=== PATIENT | male | born 1965 | race African-American/Black ===

== ENCOUNTER 2018-06-07 00:25 | Emergency (ER) | payer SELFPAY ==
--- NOTE | 2018-06-07 00:45 | EDM.PDOC ---
ED HPI GENERAL MEDICAL PROBLEM - General Stated Complaint: OUT OF MEDICATION Time Seen by Provider: 06/07/18 00:35 - History of Present Illness INITIAL COMMENTS - FREE TEXT/NARRATIVE: HISTORY AND PHYSICAL: History of present illness: Patient 52-year-old male history of bipolar disorder schizophrenia and hypertension who's been medically noncompliant due to inability to pay first prescriptions he presents today with significant other who states that he's had more psychiatric symptoms in the form of hearing voices. There's been no reported suicidal homicidal ideation patient is polite cooperative without complaints here. I did discuss with patient and family inpatient psychiatric services and if they would consider this at this time they are discussing it. Review of systems: As per history of present illness and below otherwise all systems reviewed and negative. Past medical history: As per history of present illness and as reviewed below otherwise noncontributory. Surgical history: As per history of present illness and as reviewed below otherwise noncontributory. Social history: No reported history of drug or alcohol abuse. Family history: As per history of present illness and as reviewed below otherwise noncontributory. Physical exam: HEENT: Atraumatic, normocephalic, pupils reactive, negative for conjunctival pallor or scleral icterus, mucous membranes moist, throat clear, neck supple, nontender, trachea midline. Lungs: Clear to auscultation, breath sounds equal bilaterally, chest nontender. Heart: S1S2, regular, negative for clicks, rubs, or JVD. Abdomen: Soft, nondistended, nontender. Negative for masses or hepatosplenomegaly. Negative for costovertebral tenderness. Pelvis: Stable nontender. Genitourinary: Deferred. Rectal: Deferred. Extremities: Atraumatic, negative for cords or calf pain. Neurovascular unremarkable. Neuro: Awake, alert, oriented. Cranial nerves II through XII unremarkable. Cerebellum unremarkable. Motor and sensory unremarkable throughout. Exam nonfocal. Diagnostics: To be determined Therapeutics: To be determined Impression: #1 medical noncompliance #2 history of bipolar disorder #3 history of schizophrenia #4 history of hypertension Definitive disposition and diagnosis as appropriate pending reevaluation and review of above. ED ROS GENERAL - Review of Systems Review Of Systems: ROS reveals no pertinent complaints other than HPI. ED EXAM, GENERAL - Physical Exam Exam: See Below (see dictation) Departure - Departure Time of Disposition: 00:43 Disposition: Against Medical Advice 07 Condition: Good Clinical Impression: History of schizophrenia, Medical non-compliance, History of bipolar disorder, History of hypertension - Discharge Information *PRESCRIPTION DRUG MONITORING PROGRAM REVIEWED*: Not Applicable *COPY OF PRESCRIPTION DRUG MONITORING REPORT IN PATIENT JB: Not Applicable Referrals: PCP,None [Primary Care Provider] - Additional Instructions: The following information is given to patients seen in the emergency department who are being discharged to home. This information is to outline your options for follow-up care. We provide all patients seen in our emergency department with a follow-up referral. The need for follow-up, as well as the timing and circumstances, are variable depending upon the specifics of your emergency department visit. If you don't have a primary care physician on staff, we will provide you with a referral. We always advise you to contact your personal physician following an emergency department visit to inform them of the circumstance of the visit and for follow-up with them and/or the need for any referrals to a consulting specialist. The emergency department will also refer you to a specialist when appropriate. This referral assures that you have the opportunity for followup care with a specialist. All of these measure are taken in an effort to provide you with optimal care, which includes your followup. Under all circumstances we always encourage you to contact your private physician who remains a resource for coordinating your care. When calling for followup care, please make the office aware that this follow-up is from your recent emergency room visit. If for any reason you are refused follow-up, please contact the [facility] emergency department at and asked to speak to the emergency department charge nurse. Follow-up primary medical doctor as discussed return as needed as discussed
== END 2018-06-07 00:50 | disposition left against medical advice (07) ==
LOC: MW.ED 00:25
DX: Z91.19 Patient's noncompliance with other medical treatment and regimen (principal); F31.9 Bipolar disorder, unspecified; F20.9 Schizophrenia, unspecified; I10 Essential (primary) hypertension
CPT/HCPCS: 99284

== ENCOUNTER 2019-08-25 05:06 | Observation (INO) | payer OTHER ==
[2019-08-25] MEDS ORDERED: Sodium Chloride 0.9% 1,000 ML IV ONE (05:30)
[2019-08-25 05:47] LABS: BLOOD UREA NITROGEN,BUN 15 mg/dL (7.0-18.0); CHLORIDE,CL 107 mmol/L (98-107); GLUCOSE RANDOM 141 mg/dL (74-106); POTASSIUM,K 3.4 mmol/L (3.5-5.1); SODIUM,NA 140 mmol/L (136-148)
--- NOTE | 2019-08-25 05:55 | EDM.PDOC ---
ED HPI GENERAL MEDICAL PROBLEM - General Chief Complaint: Neurological Problem Stated Complaint: DIZZY, HISTORY OF HEART PROBLEMS Time Seen by Provider: 08/25/19 06:32 - History of Present Illness INITIAL COMMENTS - FREE TEXT/NARRATIVE: HISTORY AND PHYSICAL: History of present illness: Patient 54-year-old male history of schizophrenia and bipolar disorder diabetes who presents with a concern of syncopal episode states she found him on the floor this morning when she awoke somewhat disoriented on arrival here patient is afebrile stable vital signs he is oriented to person he does recognize his he thinks is in the clinic in denies any headache chest pain shortness of breath other concern he has no known seizure disorder and there was no witnessed seizure he was incontinent of bowel and bladder but states that this has been going on for months since he is return from a recent travel to [place] in [facility] several months months prior Review of systems: As per history of present illness and below otherwise all systems reviewed and negative. Past medical history: As per history of present illness and as reviewed below otherwise noncontributory. Surgical history: As per history of present illness and as reviewed below otherwise noncontributory. Social history: No reported history of drug or alcohol abuse. Family history: As per history of present illness and as reviewed below otherwise noncontributory. Physical exam: HEENT: Atraumatic, normocephalic, pupils reactive, negative for conjunctival pallor or scleral icterus, mucous membranes moist, throat clear, neck supple, nontender, trachea midline. Lungs: Clear to auscultation, breath sounds equal bilaterally, chest nontender. Heart: S1S2, regular, negative for clicks, rubs, or JVD. Abdomen: Soft, nondistended, nontender. Negative for masses or hepatosplenomegaly. Negative for costovertebral tenderness. Pelvis: Stable nontender. Genitourinary: Deferred. Rectal: Deferred. Extremities: Atraumatic, negative for cords or calf pain. Neurovascular unremarkable. Neuro: Awake, alert, oriented to person follows commands moves all extremities limited grossly nonfocal exam. Diagnostics: CBC CMP troponin PT/INR chest x-ray EKG CT brain stool for C&S O&P C. difficile ammonia level urine drug screen [employer]: IV O2 monitor Impression: #1 syncope #2 altered mental status #3 history of schizophrenia #4 history of bipolar disorder #5 history of diabetes Definitive disposition and diagnosis as appropriate pending reevaluation and review of above. Posterior Head Pain Score (Numeric/FACES): 8 - Related Data Allergies Allergy/AdvReac Type Severity Reaction Status Date / Time No Known Allergies Allergy Verified 08/25/19 05:23 Home Meds: Home Meds Gabapentin [Neurontin] 300 mg PO BEDTIME 08/25/19 [History] Lisinopril 30 mg PO DAILY 08/25/19 [History] Metoprolol Succinate [Toprol XL] 200 mg PO DAILY 08/25/19 [History] OLANZapine [Olanzapine] 10 mg PO BEDTIME 08/25/19 [History] Sertraline [Zoloft] 100 mg PO BEDTIME 08/25/19 [History] amLODIPine [Norvasc] 5 mg PO DAILY 08/25/19 [History] atorvaSTATin Calcium [Atorvastatin Calcium] 80 mg PO DAILY 08/25/19 [History] metFORMIN [Glucophage XR] 500 mg PO BIDMEALS 08/25/19 [History] traZODone HCl [Trazodone HCl] 150 mg PO BEDTIME 08/25/19 [History] Past Medical History HEENT History: Reports: None Cardiovascular History: Reports: High Cholesterol, Hypertension Respiratory History: Reports: None Gastrointestinal History: Reports: None Genitourinary History: Reports: None Musculoskeletal History: Reports: None Neurological History: Reports: None Psychiatric History: Reports: Bipolar, Hallucinations, Schizophrenia, Other ( See Below) Other Psychiatric History: Off meds for 5 weeks Endocrine/Metabolic History: Reports: Diabetes, Type II Hematologic History: Reports: None Immunologic History: Reports: None Oncologic (Cancer) History: Reports: None Dermatologic History: Reports: None - Infectious Disease History Infectious Disease History: Reports: None - Past Surgical History Head Surgeries/Procedures: Reports: None HEENT Surgical History: Reports: Tonsillectomy Social & Family History - Tobacco Use Smoking Status *Q: Never Smoker - Recreational Drug Use Recreational Drug Use: No ED ROS GENERAL - Review of Systems Review Of Systems: Comprehensive ROS is negative, except as noted in HPI. ED EXAM, GENERAL - Physical Exam Exam: See Below (Dictation) Course - Vital Signs Last Recorded V/S: Last Vital Signs Temp 36.3 C 08/25/19 05:21 Pulse 72 08/25/19 05:21 Resp 16 08/25/19 05:21 BP 163/92 H 08/25/19 05:21 Pulse Ox 95 08/25/19 05:21 - Orders/Labs/Meds Orders: Active Orders 24 hr Category Date Time Status Cardiac Monitoring [RC] . DIRECTED Care 08/25/19 05:28 Active EKG Documentation Completion [RC] STAT Care 08/25/19 05:28 Active Pulse Oximetry [RC] ASDIRECTED Care 08/25/19 05:30 Active C DIFFICILE AG/TOXIN W/REFLEX [RM] Stat Lab 08/25/19 05:33 Ordered CULTURE STOOL + CAMPY+SHIGATOX [RM] Stat Lab 08/25/19 05:33 Ordered DRUG SCREEN, URINE [URCHEM] Stat Lab 08/25/19 05:30 Ordered UA W/RENATO RFLX IF INDICATED [URIN] Stat Lab 08/25/19 05:30 Ordered Saline Lock Insert [OM.PC] Stat Oth 08/25/19 05:30 Ordered Labs: Laboratory Tests 08/25/19 08/25/19 08/25/19 Range/Units 05:10 05:10 05:10 WBC 4.30 (4.0-11.0) K/uL RBC 4.81 (4.50-5.90) M/uL Hgb 14.2 (13.0-17.0) g/dL Hct 40.8 (38.0-50.0) % MCV 84.8 (80.0-98.0) fL MCH 29.5 (27.0-32.0) pg MCHC 34.8 (31.0-37.0) g/dL RDW Std Deviation 43.9 (28.0-62.0) fl RDW Coeff of Joy 14 (11.0-15.0) % Plt Count 189 (150-400) K/uL MPV 10.20 (7.40-12.00) fL Neut % (Auto) 38.2 L (48.0-80.0) % Lymph % (Auto) 46.0 H (16.0-40.0) % Bremer % (Auto) 8.4 (0.0-15.0) % Eos % (Auto) 6.5 (0.0-7.0) % Baso % (Auto) 0.9 (0.0-1.5) % Neut # (Auto) 1.6 (1.4-5.7) K/uL Lymph # (Auto) 2.0 (0.6-2.4) K/uL Bremer # (Auto) 0.4 (0.0-0.8) K/uL Eos # (Auto) 0.3 (0.0-0.7) K/uL Baso # (Auto) 0.0 (0.0-0.1) K/uL Nucleated RBC % 0.0 /100WBC Nucleated RBCs # 0 K/uL INR 1.03 Sodium 140 (136-148) mmol/L Potassium 3.4 L (3.5-5.1) mmol/L Chloride 107 (98-107) mmol/L Carbon Dioxide 23.0 (21.0-32.0) mmol/L BUN 15 (7.0-18.0) mg/dL Creatinine 1.1 (0.8-1.3) mg/dL Est Cr Clr Drug Dosing 77.42 mL/min Estimated GFR (MDRD) > 60.0 ml/min Glucose 141 H (74-106) mg/dL Calcium 8.9 (8.5-10.1) mg/dL Total Bilirubin 1.0 (0.2-1.0) mg/dL AST 21 (15-37) IU/L ALT 23 (14-63) IU/L Alkaline Phosphatase 70 (46-116) U/L Ammonia (19-54) ug/dL Troponin I < 0.050 (0.000-0.056) ng/mL Total Protein 7.7 (6.4-8.2) g/dL Albumin 3.8 (3.4-5.0) g/dL Globulin 3.9 (2.6-4.0) g/dL Albumin/Globulin Ratio 1.0 (0.9-1.6) Prolactin ng/mL 08/25/19 08/25/19 Range/Units 05:10 05:39 WBC (4.0-11.0) K/uL RBC (4.50-5.90) M/uL Hgb (13.0-17.0) g/dL Hct (38.0-50.0) % MCV (80.0-98.0) fL MCH (27.0-32.0) pg MCHC (31.0-37.0) g/dL RDW Std Deviation (28.0-62.0) fl RDW Coeff of Joy (11.0-15.0) % Plt Count (150-400) K/uL MPV (7.40-12.00) fL Neut % (Auto) (48.0-80.0) % Lymph % (Auto) (16.0-40.0) % Bremer % (Auto) (0.0-15.0) % Eos % (Auto) (0.0-7.0) % Baso % (Auto) (0.0-1.5) % Neut # (Auto) (1.4-5.7) K/uL Lymph # (Auto) (0.6-2.4) K/uL Bremer # (Auto) (0.0-0.8) K/uL Eos # (Auto) (0.0-0.7) K/uL Baso # (Auto) (0.0-0.1) K/uL Nucleated RBC % /100WBC Nucleated RBCs # K/uL INR Sodium (136-148) mmol/L Potassium (3.5-5.1) mmol/L Chloride (98-107) mmol/L Carbon Dioxide (21.0-32.0) mmol/L BUN (7.0-18.0) mg/dL Creatinine (0.8-1.3) mg/dL Est Cr Clr Drug Dosing mL/min Estimated GFR (MDRD) ml/min Glucose (74-106) mg/dL Calcium (8.5-10.1) mg/dL Total Bilirubin (0.2-1.0) mg/dL AST (15-37) IU/L ALT (14-63) IU/L Alkaline Phosphatase (46-116) U/L Ammonia 37 (19-54) ug/dL Troponin I (0.000-0.056) ng/mL Total Protein (6.4-8.2) g/dL Albumin (3.4-5.0) g/dL Globulin (2.6-4.0) g/dL Albumin/Globulin Ratio (0.9-1.6) Prolactin 6.4 ng/mL Meds: Medications Discontinued Medications Generic Name Dose Route Start Last Admin Trade Name Freq PRN Reason Stop Dose Admin Sodium Chloride 1,000 mls @ 999 mls/hr 08/25/19 05:30 Normal Saline IV 08/25/19 06:30 BOLUS ONE Departure - Departure Time of Disposition: 06:32 Disposition: Refer to Observation Condition: Good Clinical Impression: Altered mental status, Syncope, History of schizophrenia, History of bipolar disorder, History of hypertension - Discharge Information Referrals: Dominic Zuniga MD [Primary Care Provider] - Forms: ED Department Discharge - My Orders Last 24 Hours: My Active Orders 08/25/19 05:28 Cardiac Monitoring [RC] . DIRECTED EKG Documentation Completion [RC] STAT 08/25/19 05:30 Pulse Oximetry [RC] ASDIRECTED DRUG SCREEN, URINE [URCHEM] Stat UA W/RENATO RFLX IF INDICATED [URIN] Stat Saline Lock Insert [OM.PC] Stat 08/25/19 05:33 C DIFFICILE AG/TOXIN W/REFLEX [RM] Stat CULTURE STOOL + CAMPY+SHIGATOX [RM] Stat - Assessment/Plan Last 24 Hours: My Active Orders 08/25/19 05:28 Cardiac Monitoring [RC] . DIRECTED EKG Documentation Completion [RC] STAT 08/25/19 05:30 Pulse Oximetry [RC] ASDIRECTED DRUG SCREEN, URINE [URCHEM] Stat UA W/RENATO RFLX IF INDICATED [URIN] Stat Saline Lock Insert [OM.PC] Stat 08/25/19 05:33 C DIFFICILE AG/TOXIN W/REFLEX [RM] Stat CULTURE STOOL + CAMPY+SHIGATOX [RM] Stat
--- NOTE | 2019-08-25 06:15 | CR ---
INDICATION: Dizziness. TECHNIQUE: AP chest. FINDINGS: Clear lungs. Normal heart size and pulmonary vascularity. The included skeletal thorax is unremarkable with exception of mild spurring at the AC joints. IMPRESSION: Negative AP chest. Dictated by Javad Hamilton MD @ Aug 25 2019 6:13AM Signed by Dr. Javad Hamilton @ Aug 25 2019 6:14AM
--- NOTE | 2019-08-25 06:17 | CT ---
INDICATION: Dizziness. TECHNIQUE: Noncontrast head CT. COMPARISON: None. FINDINGS: No acute intracranial hemorrhage, hydrocephalus, mass effect, or shift of midline structures. No evidence for ischemic change or infarction. The calvarium is skullbase are negative for fractures. The included mastoid air cells are clear. Mucosal thickening partial opacification of several ethmoid sinuses. Possible polyp or retention cyst posterior inferior right maxillary sinus. IMPRESSION: No acute intracranial process identified. Please note that all CT scans at this facility use dose modulation, iterative reconstruction, and/or weight-based dosing when appropriate to reduce radiation dose to as low as reasonably achievable. Dictated by Javad Hamilton MD @ Aug 25 2019 6:15AM Signed by Dr. Javad Hamilton @ Aug 25 2019 6:16AM
[2019-08-25] MEDS ORDERED: Acetaminophen 325 MG Tab PO PRN (08:32)
[2019-08-25] MEDS ORDERED: Ondansetron 4 MG Tab.DIS PO PRN (08:32)
[2019-08-25] MEDS ORDERED: Ondansetron 4 MG/2 ML SDV IVPUSH PRN (08:32)
[2019-08-25] MEDS ORDERED: Potassium Chloride 20 MEQ Tab.ER PO ONE (09:18)
[2019-08-25] MEDS: amLODIPine 5 MG Tab PO SCH (09:36)
[2019-08-25] MEDS: atorvaSTATin 40 MG Tab PO SCH ×2 (09:36→09:45)
[2019-08-25] MEDS: Enoxaparin 40 MG/0.4 ML Syringe SUBCUT SCH (09:37)
[2019-08-25] MEDS: Lisinopril 10 MG Tab PO SCH ×2 (09:37→09:45)
[2019-08-25] MEDS: Metoprolol Succinate 100 MG Tab.ER PO SCH ×2 (09:38→09:45)
[2019-08-25] MEDS: Pantoprazole 40 MG Tab.CR PO SCH (09:42)
[2019-08-25] MEDS ORDERED: Gadobenate Dimeglumine 529 MG/ML 20 ML SDV IVPUSH ONE (10:36)
[2019-08-25] MEDS: Sodium Chloride 0.9% 1,000 ML IV SCH ×2 (11:38→20:09)
[2019-08-25] MEDS: Insulin Aspart 100 Units/ML 3 ML Pen SUBCUT SCH ×2 (12:16→18:43)
--- NOTE | 2019-08-25 17:30 | PCM.HP.2 ---
H&P History of Present Illness - General Date of Service: 08/25/19 Admit Problem/Dx: Admission Diagnosis/Problem Admission Diagnosis/Problem Syncope - History of Present Illness Initial Comments - Free Text/Narative: 54-year-old male admitted for suspected syncopal episode and altered mental status. He has a PMH of bipolar disorder, schizophrenia, DM II and HTN. He was found laying on the floor of his house this morning by his . Patient reports that he was not laying on the floor for very long and his came in and found him as soon as she heard him hit the floor. Patient reports that he "passed out" and woke up as soon as his head hit the floor. His reports that he was bowel and bladder incontinent when she found him but further states that he has been bowel incontinent for several weeks now. He reports having severe diarrhea and not being able to make it the bathroom to relieve himself since returning from a trip to [place] and [facility] a few months ago. Patient also reportedly was diagnosed with Zika virus at that time. He also reports traveling to [place] in [place] a few weeks ago. He further complains of abdominal bloating and acid reflux since the onset of his diarrhea. also reports that patient has appeared more confused and slower to answering questions for the past several weeks. There was no witnessed seizure activity. Patient denies any fevers, chills, blurry vision, shortness of breath, chest pain, nausea, vomiting, numbness or tingling, blood in stool or blood in urine. In the ER, CT head and CXR were negative. He was positive for orthostatic hypotension. CMP revealed mild hypokalemia. UA and UDS were negative. Patient admitted for further work-up. Posterior Head Pain Score (Numeric/FACES): 8 - Related Data Allergies/Adverse Reactions: Allergies Allergy/AdvReac Type Severity Reaction Status Date / Time No Known Allergies Allergy Verified 08/25/19 09:53 Home Medications: Home Meds Gabapentin [Neurontin] 300 mg PO BEDTIME 08/25/19 [History] Lisinopril 30 mg PO DAILY 08/25/19 [History] Metoprolol Succinate [Toprol XL] 200 mg PO DAILY 08/25/19 [History] OLANZapine [Olanzapine] 10 mg PO BEDTIME 08/25/19 [History] Sertraline [Zoloft] 100 mg PO BEDTIME 08/25/19 [History] amLODIPine [Norvasc] 5 mg PO DAILY 08/25/19 [History] atorvaSTATin Calcium [Atorvastatin Calcium] 80 mg PO DAILY 08/25/19 [History] metFORMIN [Glucophage] 500 mg PO BIDMEALS 08/25/19 [History] traZODone HCl [Trazodone HCl] 150 mg PO BEDTIME 08/25/19 [History] Past Medical History HEENT History: Reports: None Cardiovascular History: Reports: High Cholesterol, Hypertension Respiratory History: Reports: None Gastrointestinal History: Reports: None Genitourinary History: Reports: None Musculoskeletal History: Reports: None Neurological History: Reports: None Psychiatric History: Reports: Bipolar, Hallucinations, Schizophrenia Other Psychiatric History: Off meds for 5 weeks Endocrine/Metabolic History: Reports: Diabetes, Type II Hematologic History: Reports: None Immunologic History: Reports: None Oncologic (Cancer) History: Reports: None Dermatologic History: Reports: None - Infectious Disease History Infectious Disease History: Reports: None - Past Surgical History Head Surgeries/Procedures: Reports: None HEENT Surgical History: Reports: Tonsillectomy Social & Family History - Tobacco Use Smoking Status *Q: Never Smoker Second Hand Smoke Exposure: No - Caffeine Use Caffeine Use: Reports: Soda Other Caffeine Use: Occ - Recreational Drug Use Recreational Drug Use: No H&P Review of Systems - Review of Systems: Review Of Systems: Comprehensive ROS is negative, except as noted in HPI. Exam - Exam Exam: See Below - Vital Signs Vital Signs: Last Vital Signs Temp 98.0 F 08/25/19 15:44 Pulse 68 08/25/19 15:44 Resp 20 08/25/19 15:44 BP 136/91 H 08/25/19 15:44 Pulse Ox 97 08/25/19 15:44 Orthostatic Blood Pressure [ 136/99 Standing] Orthostatic Blood Pressure [ 148/92 Sitting] Orthostatic Blood Pressure [ 156/101 Supine] Weight: 227 lb 11.8 oz - Exam General: Alert, Oriented, Cooperative HEENT: Conjunctiva Clear, EOMI, Mucosa Moist & [place], Posterior Pharynx Clear, Pupils Equal, Pupils Reactive Neck: Supple, Trachea Midline Lungs: Clear to Auscultation, Normal Respiratory Effort Cardiovascular: Regular Rate, Regular Rhythm GI/Abdominal Exam: Normal Bowel Sounds, Soft, Non-Tender, No Distention Extremities: Normal Inspection, No Pedal Edema Peripheral Pulses: 2+: Posterior Tibial (L), Posterior Tibial (R) Skin: Warm, Dry, Intact Neurological: Cranial Nerves Intact, Strength Equal Bilateral, Normal Tone, Other (AO x 2, slow to answering questions) Psychiatric: Alert, Normal Affect, Normal Mood - Patient Data Lab Results Last 24 hrs: Laboratory Results - last 24 hr 08/25/19 08/25/19 08/25/19 Range/Units 05:10 05:10 05:10 WBC 4.30 (4.0-11.0) K/uL RBC 4.81 (4.50-5.90) M/uL Hgb 14.2 (13.0-17.0) g/dL Hct 40.8 (38.0-50.0) % MCV 84.8 (80.0-98.0) fL MCH 29.5 (27.0-32.0) pg MCHC 34.8 (31.0-37.0) g/dL RDW Std Deviation 43.9 (28.0-62.0) fl RDW Coeff of Joy 14 (11.0-15.0) % Plt Count 189 (150-400) K/uL MPV 10.20 (7.40-12.00) fL Neut % (Auto) 38.2 L (48.0-80.0) % Lymph % (Auto) 46.0 H (16.0-40.0) % [place] % (Auto) 8.4 (0.0-15.0) % Eos % (Auto) 6.5 (0.0-7.0) % Baso % (Auto) 0.9 (0.0-1.5) % Neut # (Auto) 1.6 (1.4-5.7) K/uL Lymph # (Auto) 2.0 (0.6-2.4) K/uL [place] # (Auto) 0.4 (0.0-0.8) K/uL Eos # (Auto) 0.3 (0.0-0.7) K/uL Baso # (Auto) 0.0 (0.0-0.1) K/uL Nucleated RBC % 0.0 /100WBC Nucleated RBCs # 0 K/uL INR 1.03 Sodium 140 (136-148) mmol/L Potassium 3.4 L (3.5-5.1) mmol/L Chloride 107 (98-107) mmol/L Carbon Dioxide 23.0 (21.0-32.0) mmol/L BUN 15 (7.0-18.0) mg/dL Creatinine 1.1 (0.8-1.3) mg/dL Est Cr Clr Drug Dosing 77.42 mL/min Estimated GFR (MDRD) > 60.0 ml/min Glucose 141 H (74-106) mg/dL POC Glucose (60-110) mg/dL Calcium 8.9 (8.5-10.1) mg/dL Phosphorus (2.6-4.7) mg/dL Magnesium (1.8-2.4) mg/dL Total Bilirubin 1.0 (0.2-1.0) mg/dL AST 21 (15-37) IU/L ALT 23 (14-63) IU/L Alkaline Phosphatase 70 (46-116) U/L Ammonia (19-54) ug/dL Creatine Kinase (26-308) U/L Troponin I < 0.050 (0.000-0.056) ng/mL Total Protein 7.7 (6.4-8.2) g/dL Albumin 3.8 (3.4-5.0) g/dL Globulin 3.9 (2.6-4.0) g/dL Albumin/Globulin Ratio 1.0 (0.9-1.6) Prolactin ng/mL Urine Color Urine Appearance Urine pH (5.0-8.0) Ur Specific [place] (1.001-1.035) Urine Protein (NEGATIVE) mg/dL Urine Glucose (UA) (NEGATIVE) mg/dL Urine Ketones (NEGATIVE) mg/dL Urine Occult Blood (NEGATIVE) Urine Nitrite (NEGATIVE) Urine Bilirubin (NEGATIVE) Urine Urobilinogen (<2.0) EU/dL Ur Leukocyte Esterase (NEGATIVE) Urine Opiates Screen (NEGATIVE) Ur Oxycodone Screen (NEGATIVE) Urine Methadone Screen (NEGATIVE) Ur Barbiturates Screen (NEGATIVE) Ur Phencyclidine Scrn (NEGATIVE) Ur Amphetamine Screen (NEGATIVE) U Methamphetamines Scrn (NEGATIVE) U Benzodiazepines Scrn (NEGATIVE) U Cocaine Metab Screen (NEGATIVE) U Marijuana (THC) Screen (NEGATIVE) 08/25/19 08/25/19 08/25/19 Range/Units 05:10 05:10 05:10 WBC (4.0-11.0) K/uL RBC (4.50-5.90) M/uL Hgb (13.0-17.0) g/dL Hct (38.0-50.0) % MCV (80.0-98.0) fL MCH (27.0-32.0) pg MCHC (31.0-37.0) g/dL RDW Std Deviation (28.0-62.0) fl RDW Coeff of Joy (11.0-15.0) % Plt Count (150-400) K/uL MPV (7.40-12.00) fL Neut % (Auto) (48.0-80.0) % Lymph % (Auto) (16.0-40.0) % [place] % (Auto) (0.0-15.0) % Eos % (Auto) (0.0-7.0) % Baso % (Auto) (0.0-1.5) % Neut # (Auto) (1.4-5.7) K/uL Lymph # (Auto) (0.6-2.4) K/uL [place] # (Auto) (0.0-0.8) K/uL Eos # (Auto) (0.0-0.7) K/uL Baso # (Auto) (0.0-0.1) K/uL Nucleated RBC % /100WBC Nucleated RBCs # K/uL INR Sodium (136-148) mmol/L Potassium (3.5-5.1) mmol/L Chloride (98-107) mmol/L Carbon Dioxide (21.0-32.0) mmol/L BUN (7.0-18.0) mg/dL Creatinine (0.8-1.3) mg/dL Est Cr Clr Drug Dosing mL/min Estimated GFR (MDRD) ml/min Glucose (74-106) mg/dL POC Glucose (60-110) mg/dL Calcium (8.5-10.1) mg/dL Phosphorus 3.5 (2.6-4.7) mg/dL Magnesium 2.0 (1.8-2.4) mg/dL Total Bilirubin (0.2-1.0) mg/dL AST (15-37) IU/L ALT (14-63) IU/L Alkaline Phosphatase (46-116) U/L Ammonia (19-54) ug/dL Creatine Kinase 192 (26-308) U/L Troponin I (0.000-0.056) ng/mL Total Protein (6.4-8.2) g/dL Albumin (3.4-5.0) g/dL Globulin (2.6-4.0) g/dL Albumin/Globulin Ratio (0.9-1.6) Prolactin 6.4 ng/mL Urine Color Urine Appearance Urine pH (5.0-8.0) Ur Specific [place] (1.001-1.035) Urine Protein (NEGATIVE) mg/dL Urine Glucose (UA) (NEGATIVE) mg/dL Urine Ketones (NEGATIVE) mg/dL Urine Occult Blood (NEGATIVE) Urine Nitrite (NEGATIVE) Urine Bilirubin (NEGATIVE) Urine Urobilinogen (<2.0) EU/dL Ur Leukocyte Esterase (NEGATIVE) Urine Opiates Screen (NEGATIVE) Ur Oxycodone Screen (NEGATIVE) Urine Methadone Screen (NEGATIVE) Ur Barbiturates Screen (NEGATIVE) Ur Phencyclidine Scrn (NEGATIVE) Ur Amphetamine Screen (NEGATIVE) U Methamphetamines Scrn (NEGATIVE) U Benzodiazepines Scrn (NEGATIVE) U Cocaine Metab Screen (NEGATIVE) U Marijuana (THC) Screen (NEGATIVE) 08/25/19 08/25/19 08/25/19 Range/Units 05:39 07:00 07:00 WBC (4.0-11.0) K/uL RBC (4.50-5.90) M/uL Hgb (13.0-17.0) g/dL Hct (38.0-50.0) % MCV (80.0-98.0) fL MCH (27.0-32.0) pg MCHC (31.0-37.0) g/dL RDW Std Deviation (28.0-62.0) fl RDW Coeff of Joy (11.0-15.0) % Plt Count (150-400) K/uL MPV (7.40-12.00) fL Neut % (Auto) (48.0-80.0) % Lymph % (Auto) (16.0-40.0) % [place] % (Auto) (0.0-15.0) % Eos % (Auto) (0.0-7.0) % Baso % (Auto) (0.0-1.5) % Neut # (Auto) (1.4-5.7) K/uL Lymph # (Auto) (0.6-2.4) K/uL [place] # (Auto) (0.0-0.8) K/uL Eos # (Auto) (0.0-0.7) K/uL Baso # (Auto) (0.0-0.1) K/uL Nucleated RBC % /100WBC Nucleated RBCs # K/uL INR Sodium (136-148) mmol/L Potassium (3.5-5.1) mmol/L Chloride (98-107) mmol/L Carbon Dioxide (21.0-32.0) mmol/L BUN (7.0-18.0) mg/dL Creatinine (0.8-1.3) mg/dL Est Cr Clr Drug Dosing mL/min Estimated GFR (MDRD) ml/min Glucose (74-106) mg/dL POC Glucose (60-110) mg/dL Calcium (8.5-10.1) mg/dL Phosphorus (2.6-4.7) mg/dL Magnesium (1.8-2.4) mg/dL Total Bilirubin (0.2-1.0) mg/dL AST (15-37) IU/L ALT (14-63) IU/L Alkaline Phosphatase (46-116) U/L Ammonia 37 (19-54) ug/dL Creatine Kinase (26-308) U/L Troponin I (0.000-0.056) ng/mL Total Protein (6.4-8.2) g/dL Albumin (3.4-5.0) g/dL Globulin (2.6-4.0) g/dL Albumin/Globulin Ratio (0.9-1.6) Prolactin ng/mL Urine Color YELLOW Urine Appearance CLEAR Urine pH 5.5 (5.0-8.0) Ur Specific [place] 1.020 (1.001-1.035) Urine Protein NEGATIVE (NEGATIVE) mg/dL Urine Glucose (UA) NEGATIVE (NEGATIVE) mg/dL Urine Ketones NEGATIVE (NEGATIVE) mg/dL Urine Occult Blood NEGATIVE (NEGATIVE) Urine Nitrite NEGATIVE (NEGATIVE) Urine Bilirubin NEGATIVE (NEGATIVE) Urine Urobilinogen 0.2 (<2.0) EU/dL Ur Leukocyte Esterase NEGATIVE (NEGATIVE) Urine Opiates Screen NEGATIVE (NEGATIVE) Ur Oxycodone Screen NEGATIVE (NEGATIVE) Urine Methadone Screen NEGATIVE (NEGATIVE) Ur Barbiturates Screen NEGATIVE (NEGATIVE) Ur Phencyclidine Scrn NEGATIVE (NEGATIVE) Ur Amphetamine Screen NEGATIVE (NEGATIVE) U Methamphetamines Scrn NEGATIVE (NEGATIVE) U Benzodiazepines Scrn NEGATIVE (NEGATIVE) U Cocaine Metab Screen NEGATIVE (NEGATIVE) U Marijuana (THC) Screen NEGATIVE (NEGATIVE) 08/25/19 08/25/19 Range/Units 11:43 17:01 WBC (4.0-11.0) K/uL RBC (4.50-5.90) M/uL Hgb (13.0-17.0) g/dL Hct (38.0-50.0) % MCV (80.0-98.0) fL MCH (27.0-32.0) pg MCHC (31.0-37.0) g/dL RDW Std Deviation (28.0-62.0) fl RDW Coeff of Joy (11.0-15.0) % Plt Count (150-400) K/uL MPV (7.40-12.00) fL Neut % (Auto) (48.0-80.0) % Lymph % (Auto) (16.0-40.0) % [place] % (Auto) (0.0-15.0) % Eos % (Auto) (0.0-7.0) % Baso % (Auto) (0.0-1.5) % Neut # (Auto) (1.4-5.7) K/uL Lymph # (Auto) (0.6-2.4) K/uL [place] # (Auto) (0.0-0.8) K/uL Eos # (Auto) (0.0-0.7) K/uL Baso # (Auto) (0.0-0.1) K/uL Nucleated RBC % /100WBC Nucleated RBCs # K/uL INR Sodium (136-148) mmol/L Potassium (3.5-5.1) mmol/L Chloride (98-107) mmol/L Carbon Dioxide (21.0-32.0) mmol/L BUN (7.0-18.0) mg/dL Creatinine (0.8-1.3) mg/dL Est Cr Clr Drug Dosing mL/min Estimated GFR (MDRD) ml/min Glucose (74-106) mg/dL POC Glucose 91 118 H (60-110) mg/dL Calcium (8.5-10.1) mg/dL Phosphorus (2.6-4.7) mg/dL Magnesium (1.8-2.4) mg/dL Total Bilirubin (0.2-1.0) mg/dL AST (15-37) IU/L ALT (14-63) IU/L Alkaline Phosphatase (46-116) U/L Ammonia (19-54) ug/dL Creatine Kinase (26-308) U/L Troponin I (0.000-0.056) ng/mL Total Protein (6.4-8.2) g/dL Albumin (3.4-5.0) g/dL Globulin (2.6-4.0) g/dL Albumin/Globulin Ratio (0.9-1.6) Prolactin ng/mL Urine Color Urine Appearance Urine pH (5.0-8.0) Ur Specific [place] (1.001-1.035) Urine Protein (NEGATIVE) mg/dL Urine Glucose (UA) (NEGATIVE) mg/dL Urine Ketones (NEGATIVE) mg/dL Urine Occult Blood (NEGATIVE) Urine Nitrite (NEGATIVE) Urine Bilirubin (NEGATIVE) Urine Urobilinogen (<2.0) EU/dL Ur Leukocyte Esterase (NEGATIVE) Urine Opiates Screen (NEGATIVE) Ur Oxycodone Screen (NEGATIVE) Urine Methadone Screen (NEGATIVE) Ur Barbiturates Screen (NEGATIVE) Ur Phencyclidine Scrn (NEGATIVE) Ur Amphetamine Screen (NEGATIVE) U Methamphetamines Scrn (NEGATIVE) U Benzodiazepines Scrn (NEGATIVE) U Cocaine Metab Screen (NEGATIVE) U Marijuana (THC) Screen (NEGATIVE) Result Diagrams: 08/25/19 05:10 08/25/19 05:10 Que Results Last 24 hrs: Microbiology 08/25/19 14:53 Campylobacter Antigen Assay - Final Stool / Feces NEGATIVE CAMPYLOBACTER AG REFERENCE RANGE: NEGATIVE C. difficile Antigen & Toxins A,B - Final 08/25/19 05:37 Influenza Type A Antigen Screen - Final Nasopharyngeal Swab NEGATIVE INFLUENZA A VIRUS AG REFERENCE RANGE: NEGATIVE Influenza Type B Antigen Screen - Final NEGATIVE INFLUENZA B VIRUS AG REFERENCE RANGE: NEGATIVE Problem List Initiated/Reviewed/Updated: Yes Orders Last 24hrs: Active Orders 24 hr Category Date Time Status Patient Status [ADT] Stat ADT 08/25/19 06:35 Active Blood Glucose Check, Bedside [RC] TIDAC Care 08/25/19 11:00 Active Cardiac Monitoring [RC] Q8H Care 08/25/19 05:28 Active Oxygen Therapy [RC] PRN Care 08/25/19 08:32 Active Pulse Oximetry [RC] ASDIRECTED Care 08/25/19 05:30 Active Telemetry Monitoring [Cardiac Monitoring] [RC] . Care 08/25/19 08:58 Active DIRECTED Up With Assistance [RC] ASDIRECTED Care 08/25/19 08:32 Active VTE/DVT Education [RC] PER UNIT ROUTINE Care 08/25/19 08:32 Active Vital Signs [RC] Q4H Care 08/25/19 08:32 Active [employer] Diet [DIET] Diet 08/25/19 Breakfast Active Brain w wo Cont [MR] Urgent Exams 08/25/19 10:24 Taken Echo Comp wo Cont [US] Urgent Exams 08/25/19 10:24 Taken C DIFFICILE AG/TOXIN W/REFLEX [RM] Stat Lab 08/25/19 14:53 Results CULTURE STOOL + CAMPY+SHIGATOX [RM] Stat Lab 08/25/19 14:53 Results Acetaminophen [Tylenol] Med 08/25/19 08:32 Active 650 mg PO Q4H PRN Enoxaparin [Lovenox] Med 08/25/19 08:45 Active 40 mg SUBCUT Q24H Gabapentin [Neurontin] Med 08/25/19 21:00 Active 300 mg PO BEDTIME Insulin Aspart [NovoLOG] Med 08/25/19 11:30 Active See Protocol SUBCUT TIDAC Lisinopril [Prinivil] Med 08/25/19 09:00 Active 30 mg PO DAILY Metoprolol Succinate [Toprol XL] Med 08/25/19 09:00 Active 200 mg PO DAILY OLANZapine [ZyPREXA] Med 08/25/19 21:00 Active 10 mg PO BEDTIME Ondansetron [Zofran ODT] Med 08/25/19 08:32 Active 4 mg PO Q4H PRN Ondansetron [Zofran] Med 08/25/19 08:32 Active 4 mg IVPUSH Q4H PRN Pantoprazole [ProTONIX] Med 08/25/19 09:30 Active 40 mg PO DAILY Sertraline [Zoloft] Med 08/25/19 21:00 Active 100 mg PO BEDTIME Sodium Chloride 0.9% [Normal Saline] 1,000 ml Med 08/25/19 10:45 Active IV ASDIRECTED amLODIPine [Norvasc] Med 08/25/19 09:00 Active 5 mg PO DAILY atorvaSTATin [Lipitor] Med 08/25/19 09:00 Active 80 mg PO DAILY traZODone Med 08/25/19 21:00 Active 150 mg PO BEDTIME Saline Lock Insert [OM.PC] Stat Oth 08/25/19 05:30 Ordered Resuscitation Status Routine Resus Stat 08/25/19 08:32 Ordered Medication Orders Acetaminophen (Tylenol) 650 mg PO Q4H PRN PRN Reason: Pain (Mild 1-3)/fever Amlodipine Besylate (Norvasc) 5 mg PO DAILY [facility] Last Admin: 08/25/19 09:36 Dose: 5 mg Atorvastatin Calcium (Lipitor) 80 mg PO DAILY [facility] Last Admin: 08/25/19 09:45 Dose: Enoxaparin Sodium (Lovenox) 40 mg SUBCUT Q24H [facility] Last Admin: 08/25/19 09:37 Dose: 40 mg Gabapentin (Neurontin) 300 mg PO BEDTIME [facility] Sodium Chloride (Normal Saline) 1,000 mls @ 125 mls/hr IV ASDIRECTED [facility] Last Admin: 08/25/19 11:38 Dose: 125 mls/hr Insulin Aspart (Novolog) 0 unit SUBCUT TIDAC [facility]; Protocol Last Admin: 08/25/19 12:16 Dose: Lisinopril (Prinivil) 30 mg PO DAILY [facility] Last Admin: 08/25/19 09:45 Dose: Metoprolol Succinate (Toprol Xl) 200 mg PO DAILY [facility] Last Admin: 08/25/19 09:45 Dose: Olanzapine (Zyprexa) 10 mg PO BEDTIME [facility] Ondansetron HCl (Zofran Odt) 4 mg PO Q4H PRN PRN Reason: nausea, able to take PO Ondansetron HCl (Zofran) 4 mg IVPUSH Q4H PRN PRN Reason: Nausea Pantoprazole Sodium (Protonix) 40 mg PO DAILY [facility] Last Admin: 08/25/19 09:42 Dose: 40 mg Sertraline HCl (Zoloft) 100 mg PO BEDTIME MICHAEL Trazodone HCl (Trazodone) 150 mg PO BEDTIME MICHAEL Assessment/Plan Comment:: Assessment: 1. Altered mental status 2. Suspected syncopal episode. 3. Orthostatic hypotension likely secondary to dehydration. 4. Chronic diarrhea 5. Diabetes Mellitus type II Plan: 1. Will order further imaging with MRI and also order ECHO. Patient will be on telemetry. EKG showed no acute ischemic changes. 2. For orthostatic hypotension, will hydrate patient with IV fluids. 3. For chronic diarrhea, will order stool cultures, ova + parasites and test for C. diff. 4. For diabetes mellitus II, SSI. 5. For past medical history, continue with home medications.
[2019-08-25] MEDS ORDERED: Sertraline 100 MG Tab PO SCH (21:00)
[2019-08-25] MEDS ORDERED: OLANZapine 5 MG Tab PO SCH (21:00)
[2019-08-25] MEDS ORDERED: traZODone 50 MG Tab PO SCH (21:00)
[2019-08-25] MEDS ORDERED: Gabapentin 300 MG Cap PO SCH (21:00)
[2019-08-26] MEDS: Sodium Chloride 0.9% 1,000 ML IV SCH (04:36)
[2019-08-26 06:24] LABS: BLOOD UREA NITROGEN,BUN 10 mg/dL (7.0-18.0); CARBON DIOXIDE,CO2 24.2 mmol/L (21.0-32.0); CHLORIDE,CL 109 mmol/L (98-107); GLUCOSE RANDOM 127 mg/dL (74-106); POTASSIUM,K 3.6 mmol/L (3.5-5.1); SODIUM,NA 141 mmol/L (136-148)
[2019-08-26] MEDS: Insulin Aspart 100 Units/ML 3 ML Pen SUBCUT SCH ×2 (08:40→11:48)
[2019-08-26] MEDS: Lisinopril 10 MG Tab PO SCH (09:08)
[2019-08-26] MEDS: Metoprolol Succinate 100 MG Tab.ER PO SCH (09:09)
[2019-08-26] MEDS: Pantoprazole 40 MG Tab.CR PO SCH (09:10)
[2019-08-26] MEDS: atorvaSTATin 40 MG Tab PO SCH (09:10)
[2019-08-26] MEDS: Enoxaparin 40 MG/0.4 ML Syringe SUBCUT SCH (09:13)
[2019-08-26] MEDS: amLODIPine 5 MG Tab PO SCH (09:42)
--- NOTE | 2019-08-26 12:55 | MR ---
EXAM DATE: 08/25/19 PATIENT'S AGE: 54 Patient: HARRIET WARD Facility: [facility] Site Site : [id number] Study: MRI-Head W/ and W/O Cont [id number] 10:20:11 AM Ordering Physician: LAITH Final Report: INDICATION: 54-year-old male. Syncope. TECHNIQUE: Sagittal T1, axial FLAIR T2 diffusion-weighted, susceptibility weighted and gadolinium-enhanced T1 weighted volumetric sequences. COMPARISON: Brain also dated 08/25/2019. FINDINGS: The lateral 3rd and 4th ventricles are normal in size and configuration. There are no areas of diffusion restriction to suggest acute and park hernández. There is no mass effect or evidence of hemorrhage. There are no periventricular white matter lesions. The brainstem and cerebellum appear normal. No enhancing intra- axial or extra-axial lesion. Small retention cysts in the right maxillary antrum with mucosal thickening in the ethmoid air cells. IMPRESSION: Normal MRI brain with and without contrast. No evidence of acute intracranial abnormality. Dictated by Javad Longo MD @ Aug 26 2019 10:29AM Signed by: Javad Longo MD @08/26/2019 10:36:00 AM (Electronic Signature) Report Signed by Proxy. [facility]
--- NOTE | 2019-08-26 17:33 | PCM.DCSUM1 ---
<Lico Gee - Last Filed: 08/26/19 17:28> Discharge Summary - Hospital Course Free Text/Narrative:: 54-year-old male admitted for suspected syncopal episode and altered mental status. He has a PMH of schizophrenia, bipolar disorder, DM II and HTN. Patient was reportedly found lying on the floor of his house by his and then brought to the ER. Patient also has been suffering from chronic diarrhea for the past several months since returning from a trip to [place]. also reports that patient has been confused more often for the past several weeks and slow to answering questions. Patient did test positive for orthostatic hypotension on admission and was started on IV fluids. CT head was negative and CXR was negative. MRI showed no brain abnormalities. ECHO showed normal EF. Patient remained on telemetry and no events were reported. Patient remained stable throughout his hospitalization and had no recurrence of presyncope or syncope. Stool studies returned negative for c.diff and Campylobacter. Stool ova and parasites testing are still pending and will need to be followed up by PCP. Patient reported feeling well on day of discharge and was AOx4. He was also set up with a referral to neurology. - Discharge Data Discharge Date: 08/26/19 Discharge Disposition: Home, Self-Care 01 Condition: Stable - Referral to Home Health Primary Care Physician: Dominic Zuniga MD - Patient Instructions Diet: Diabetic Diet Activity: As Tolerated Notify Provider of: Fever, Increased Pain, Swelling and Redness, Drainage, Nausea and/or Vomiting - Discharge Plan *PRESCRIPTION DRUG MONITORING PROGRAM REVIEWED*: Not Applicable *COPY OF PRESCRIPTION DRUG MONITORING REPORT IN PATIENT JB: Not Applicable Home Medications: Home Meds Gabapentin [Neurontin] 300 mg PO BEDTIME 08/25/19 [History] Lisinopril 30 mg PO DAILY 08/25/19 [History] Metoprolol Succinate [Toprol XL] 200 mg PO DAILY 08/25/19 [History] OLANZapine [Olanzapine] 10 mg PO BEDTIME 08/25/19 [History] Sertraline [Zoloft] 100 mg PO BEDTIME 08/25/19 [History] amLODIPine [Norvasc] 5 mg PO DAILY 08/25/19 [History] atorvaSTATin Calcium [Atorvastatin Calcium] 80 mg PO DAILY 08/25/19 [History] metFORMIN [Glucophage] 500 mg PO BIDMEALS 08/25/19 [History] traZODone HCl [Trazodone HCl] 150 mg PO BEDTIME 08/25/19 [History] Patient Handouts: Viral Gastroenteritis, Adult, [id number], Confusion, Dehydration, Adult, [id number] Referrals: Jennifer Burgos MD [Physician] - 09/28/19 3:00 pm (Arrive 15 minutes early with a photo ID and insurance card.) Dominic Zuniga MD [Primary Care Provider] - 09/09/19 2:00 pm - Discharge Summary/Plan Comment DC Time >30 min.: No - Patient Data Vitals - Most Recent: Last Vital Signs Temp 97.3 F 08/26/19 12:00 Pulse 61 08/26/19 12:00 Resp 18 08/26/19 12:00 BP 154/94 H 08/26/19 12:00 Pulse Ox 96 08/26/19 12:00 Orthostatic Blood Pressure [ 136/99 Standing] Orthostatic Blood Pressure [ 148/92 Sitting] Orthostatic Blood Pressure [ 156/101 Supine] Weight - Most Recent: 103.3 kg I&O - Last 24 hours: Intake & Output 08/26/19 08/26/19 08/26/19 06:59 14:59 22:59 Intake Total 1500 2380 Output Total 1300 Balance 1500 1080 Lab Results - Last 24 hrs: Laboratory Results - last 24 hr 08/25/19 08/26/19 08/26/19 Range/Units 05:24 05:47 05:47 WBC 4.28 (4.0-11.0) K/uL RBC 4.64 (4.50-5.90) M/uL Hgb 13.3 (13.0-17.0) g/dL Hct 40.0 (38.0-50.0) % MCV 86.2 (80.0-98.0) fL MCH 28.7 (27.0-32.0) pg MCHC 33.3 (31.0-37.0) g/dL RDW Std Deviation 44.4 (28.0-62.0) fl RDW Coeff of Joy 14 (11.0-15.0) % Plt Count 185 (150-400) K/uL MPV 10.40 (7.40-12.00) fL Neut % (Auto) 34.4 L (48.0-80.0) % Lymph % (Auto) 49.5 H (16.0-40.0) % [place] % (Auto) 7.7 (0.0-15.0) % Eos % (Auto) 7.9 H (0.0-7.0) % Baso % (Auto) 0.5 (0.0-1.5) % Neut # (Auto) 1.5 (1.4-5.7) K/uL Lymph # (Auto) 2.1 (0.6-2.4) K/uL [place] # (Auto) 0.3 (0.0-0.8) K/uL Eos # (Auto) 0.3 (0.0-0.7) K/uL Baso # (Auto) 0.0 (0.0-0.1) K/uL Nucleated RBC % 0.0 /100WBC Nucleated RBCs # 0 K/uL Sodium 141 (136-148) mmol/L Potassium 3.6 (3.5-5.1) mmol/L Chloride 109 H (98-107) mmol/L Carbon Dioxide 24.2 (21.0-32.0) mmol/L BUN 10 (7.0-18.0) mg/dL Creatinine 1.1 (0.8-1.3) mg/dL Est Cr Clr Drug Dosing 77.42 mL/min Estimated GFR (MDRD) > 60.0 ml/min Glucose 127 H (74-106) mg/dL POC Glucose 112 H (60-110) mg/dL Calcium 8.3 L (8.5-10.1) mg/dL Total Bilirubin 0.5 (0.2-1.0) mg/dL AST 16 (15-37) IU/L ALT 25 (14-63) IU/L Alkaline Phosphatase 61 (46-116) U/L Total Protein 7.0 (6.4-8.2) g/dL Albumin 3.4 (3.4-5.0) g/dL Globulin 3.6 (2.6-4.0) g/dL Albumin/Globulin Ratio 0.9 (0.9-1.6) 08/26/19 08/26/19 Range/Units 06:07 11:31 WBC (4.0-11.0) K/uL RBC (4.50-5.90) M/uL Hgb (13.0-17.0) g/dL Hct (38.0-50.0) % MCV (80.0-98.0) fL MCH (27.0-32.0) pg MCHC (31.0-37.0) g/dL RDW Std Deviation (28.0-62.0) fl RDW Coeff of Joy (11.0-15.0) % Plt Count (150-400) K/uL MPV (7.40-12.00) fL Neut % (Auto) (48.0-80.0) % Lymph % (Auto) (16.0-40.0) % [place] % (Auto) (0.0-15.0) % Eos % (Auto) (0.0-7.0) % Baso % (Auto) (0.0-1.5) % Neut # (Auto) (1.4-5.7) K/uL Lymph # (Auto) (0.6-2.4) K/uL [place] # (Auto) (0.0-0.8) K/uL Eos # (Auto) (0.0-0.7) K/uL Baso # (Auto) (0.0-0.1) K/uL Nucleated RBC % /100WBC Nucleated RBCs # K/uL Sodium (136-148) mmol/L Potassium (3.5-5.1) mmol/L Chloride (98-107) mmol/L Carbon Dioxide (21.0-32.0) mmol/L BUN (7.0-18.0) mg/dL Creatinine (0.8-1.3) mg/dL Est Cr Clr Drug Dosing mL/min Estimated GFR (MDRD) ml/min Glucose (74-106) mg/dL POC Glucose 127 H 123 H (60-110) mg/dL Calcium (8.5-10.1) mg/dL Total Bilirubin (0.2-1.0) mg/dL AST (15-37) IU/L ALT (14-63) IU/L Alkaline Phosphatase (46-116) U/L Total Protein (6.4-8.2) g/dL Albumin (3.4-5.0) g/dL Globulin (2.6-4.0) g/dL Albumin/Globulin Ratio (0.9-1.6) RENATO Results - Last 24 hrs: Microbiology 08/25/19 14:53 Campylobacter Antigen Assay - Final Stool / Feces NEGATIVE CAMPYLOBACTER AG REFERENCE RANGE: NEGATIVE Shiga Toxin I - Final NEGATIVE FOR SHIGA TOXIN 1 REFERENCE RANGE: NEGATIVE Shiga Toxin II - Final NEGATIVE FOR SHIGA TOXIN 2 REFERENCE RANGE: NEGATIVE C. difficile Antigen & Toxins A,B - Final Med Orders - Current: Current Medications Discontinued Medications Acetaminophen (Tylenol) 650 mg PO Q4H PRN PRN Reason: Pain (Mild 1-3)/fever Amlodipine Besylate (Norvasc) 5 mg PO DAILY [facility] Last Admin: 08/26/19 09:42 Dose: 5 mg Atorvastatin Calcium (Lipitor) 80 mg PO DAILY [facility] Last Admin: 08/26/19 09:10 Dose: 80 mg Enoxaparin Sodium (Lovenox) 40 mg SUBCUT Q24H [facility] Last Admin: 08/26/19 09:13 Dose: 40 mg Gabapentin (Neurontin) 300 mg PO BEDTIME [facility] Last Admin: 08/25/19 20:49 Dose: 300 mg Gadobenate Dimeglumine (Multihance) 20 ml IVPUSH ONETIME ONE Stop: 08/25/19 10:37 Last Admin: 08/25/19 10:37 Dose: 20 ml Sodium Chloride (Normal Saline) 1,000 mls @ 999 mls/hr IV BOLUS ONE Stop: 08/25/19 06:30 Last Admin: 08/25/19 05:10 Dose: 999 mls/hr Sodium Chloride (Normal Saline) 1,000 mls @ 125 mls/hr IV ASDIRECTED [facility] Last Admin: 08/26/19 04:36 Dose: 125 mls/hr Insulin Aspart (Novolog) 0 unit SUBCUT TIDAC [facility]; Protocol Last Admin: 08/26/19 11:48 Dose: Not Given Lisinopril (Prinivil) 30 mg PO DAILY [facility] Last Admin: 08/26/19 09:08 Dose: 30 mg Metoprolol Succinate (Toprol Xl) 200 mg PO DAILY [facility] Last Admin: 08/26/19 09:09 Dose: 200 mg Olanzapine (Zyprexa) 10 mg PO BEDTIME [facility] Last Admin: 08/25/19 20:48 Dose: 10 mg Ondansetron HCl (Zofran Odt) 4 mg PO Q4H PRN PRN Reason: nausea, able to take PO Ondansetron HCl (Zofran) 4 mg IVPUSH Q4H PRN PRN Reason: Nausea Pantoprazole Sodium (Protonix) 40 mg PO DAILY [facility] Last Admin: 08/26/19 09:10 Dose: 40 mg Potassium Chloride (Klor-Con M20) 40 meq PO ONETIME ONE Stop: 08/25/19 09:19 Last Admin: 08/25/19 09:42 Dose: 40 meq Sertraline HCl (Zoloft) 100 mg PO BEDTIME [facility] Last Admin: 08/25/19 20:49 Dose: 100 mg Trazodone HCl (Trazodone) 150 mg PO BEDTIME [facility] Last Admin: 08/25/19 20:48 Dose: 150 mg <Juanjose Goyal - Last Filed: 08/28/19 12:25> Discharge Summary - Referral to Home Health Primary Care Physician: Dominic Zuniga MD - Patient Data Vitals - Most Recent: Last Vital Signs Temp 36.3 C 08/26/19 12:00 Pulse 61 08/26/19 12:00 Resp 18 08/26/19 12:00 BP 154/94 H 08/26/19 12:00 Pulse Ox 96 08/26/19 12:00 Orthostatic Blood Pressure [ 136/99 Standing] Orthostatic Blood Pressure [ 148/92 Sitting] Orthostatic Blood Pressure [ 156/101 Supine] RENATO Results - Last 24 hrs: Microbiology 08/25/19 14:53 Cryptosporidium/Giardia - Final Stool / Feces 08/25/19 14:53 Stool Culture - Final Stool / Feces NO SALMONELLA, SHIGELLA,OR E.COLI O157 ISOLATED Campylobacter Antigen Assay - Final NEGATIVE CAMPYLOBACTER AG REFERENCE RANGE: NEGATIVE Shiga Toxin I - Final NEGATIVE FOR SHIGA TOXIN 1 REFERENCE RANGE: NEGATIVE Shiga Toxin II - Final NEGATIVE FOR SHIGA TOXIN 2 REFERENCE RANGE: NEGATIVE C. difficile Antigen & Toxins A,B - Final Med Orders - Current: Current Medications Discontinued Medications Acetaminophen (Tylenol) 650 mg PO Q4H PRN PRN Reason: Pain (Mild 1-3)/fever Amlodipine Besylate (Norvasc) 5 mg PO DAILY [facility] Last Admin: 08/26/19 09:42 Dose: 5 mg Atorvastatin Calcium (Lipitor) 80 mg PO DAILY [facility] Last Admin: 08/26/19 09:10 Dose: 80 mg Enoxaparin Sodium (Lovenox) 40 mg SUBCUT Q24H [facility] Last Admin: 08/26/19 09:13 Dose: 40 mg Gabapentin (Neurontin) 300 mg PO BEDTIME [facility] Last Admin: 08/25/19 20:49 Dose: 300 mg Gadobenate Dimeglumine (Multihance) 20 ml IVPUSH ONETIME ONE Stop: 08/25/19 10:37 Last Admin: 08/25/19 10:37 Dose: 20 ml Sodium Chloride (Normal Saline) 1,000 mls @ 999 mls/hr IV BOLUS ONE Stop: 08/25/19 06:30 Last Admin: 08/25/19 05:10 Dose: 999 mls/hr Sodium Chloride (Normal Saline) 1,000 mls @ 125 mls/hr IV ASDIRECTED [facility] Last Admin: 08/26/19 04:36 Dose: 125 mls/hr Insulin Aspart (Novolog) 0 unit SUBCUT TIDAC [facility]; Protocol Last Admin: 08/26/19 11:48 Dose: Not Given Lisinopril (Prinivil) 30 mg PO DAILY [facility] Last Admin: 08/26/19 09:08 Dose: 30 mg Metoprolol Succinate (Toprol Xl) 200 mg PO DAILY [facility] Last Admin: 08/26/19 09:09 Dose: 200 mg Olanzapine (Zyprexa) 10 mg PO BEDTIME [facility] Last Admin: 08/25/19 20:48 Dose: 10 mg Ondansetron HCl (Zofran Odt) 4 mg PO Q4H PRN PRN Reason: nausea, able to take PO Ondansetron HCl (Zofran) 4 mg IVPUSH Q4H PRN PRN Reason: Nausea Pantoprazole Sodium (Protonix) 40 mg PO DAILY [facility] Last Admin: 08/26/19 09:10 Dose: 40 mg Potassium Chloride (Klor-Con M20) 40 meq PO ONETIME ONE Stop: 08/25/19 09:19 Last Admin: 08/25/19 09:42 Dose: 40 meq Sertraline HCl (Zoloft) 100 mg PO BEDTIME [facility] Last Admin: 08/25/19 20:49 Dose: 100 mg Trazodone HCl (Trazodone) 150 mg PO BEDTIME [facility] Last Admin: 08/25/19 20:48 Dose: 150 mg - Free Text/Narrative Note: I have examined the patient with the resident. I have discussed findings and treatment plan with the resident. I agree with the assessment and plan as outlined in the following note.
--- NOTE | 2019-08-27 11:48 | ECHO ---
The echocardiogram report can be seen in this patient's EMR (Electronic Medical Record) in the REPORTS section. The echocardiogram report has also been scanned into PACS and can be seen there as well. JANAK
== END 2019-08-26 13:15 | disposition home or self-care (01) ==
LOC: MW.ED 05:06 → MW.MS 06:35
PROVIDERS: ADMIT Internal Medicine; ATTEND Internal Medicine
DX: I95.1 Orthostatic hypotension (principal); R41.82 Altered mental status, unspecified; K52.9 Noninfective gastroenteritis and colitis, unspecified; E87.6 Hypokalemia; E11.9 Type 2 diabetes mellitus without complications; I10 Essential (primary) hypertension; E78.00 Pure hypercholesterolemia, unspecified; F20.9 Schizophrenia, unspecified; F31.9 Bipolar disorder, unspecified; Z79.84 Long term (current) use of oral hypoglycemic drugs; Z79.899 Other long term (current) drug therapy
CPT/HCPCS: 36415; 70450; 70553; 71045; 80053; 80305; 81003; 82140; 82550; 82962; 83735; 84100; 84146; 84484; 85025; 85610; 87046; 87324; 87328; 87329; 87804; 87899; 93005; 93306; 99285; A9270; A9577; J1650; J7040

== ENCOUNTER 2019-12-07 05:53 | Emergency (ER) | payer SELFPAY ==
--- NOTE | 2019-12-07 08:13 | CR ---
Chest: AP view of the chest was obtained. Comparison: No prior chest imaging is available. Heart size and mediastinum are normal. Lungs are clear with no acute parenchymal change. Slight degenerative spurring is partially visualized within the spine. Impression: 1. Findings as noted above. 2. Nothing acute is appreciated on AP chest x-ray. Diagnostic code #2 Study was dictated in [place] [employer]
[2019-12-07 08:35] LABS: BLOOD UREA NITROGEN,BUN 11 mg/dL (7.0-18.0); CARBON DIOXIDE,CO2 27.3 mmol/L (21.0-32.0); CHLORIDE,CL 106 mmol/L (98-107); GLUCOSE RANDOM 134 mg/dL (74-106); POTASSIUM,K 4.3 mmol/L (3.5-5.1); SODIUM,NA 140 mmol/L (136-148)
--- NOTE | 2019-12-07 08:42 | EDM.PDOC ---
[facility] GENERAL MEDICAL PROBLEM - General Chief Complaint: Respiratory Problem Stated Complaint: SICK Time Seen by Provider: 12/07/19 07:31 - History of Present Illness INITIAL COMMENTS - FREE TEXT/NARRATIVE: HPI 54-year-old obese male with history of schizophrenia, medication noncompliance, bipolar disorder, and HTN presents for evaluation of cough, sore throat, and watery eyes with mild discomfort of ~1 week duration. No history of DVT, PE, no chest pain, shortness breath, no recent calf tenderness or swelling. Patient recently returned from visiting [place], no known sick contacts throughout history. Denies rash, neck stiffness, headache, changes in vision or hearing, or ear pain. M/S/F/SocHx notable for: please see HPI; remainder reviewed with patient and in chart. ROS: Negative constitutional, eye, cardiovascular, pulmonary, GI, , MSK, skin , neurologic, psychiatric, endocrine unless noted in the HPI. Exam HR 69, RR 20, BP 162/106, T 36.1C, SaO2 98% on room air. Gen: Pleasant, non-toxic appearing, resting comfortably. HEENT: Normocephalic, atraumatic. * Ears - TMs clear bilaterally, bilateral external auditory canals without erythema, inflammation, or swelling, bilateral mastoids nontender without overlying erythema, swelling, or warmth. * Eyes - Bilateral eyes without injection, swelling, or discharge, no proptosis or periorbital erythema, swelling, warmth, or tenderness. * Mouth - Anterior oropharynx with MMM, no lesions appreciated, floor of the mouth is soft and without swelling. Posterior oropharynx with mild erythema but without swelling, exudate, lesions, uvula midline. * Nose - Nares with scant crusting and discharge. * Neck - Neck supple without posterior or anterior cervical chain lymphadenopathy bilaterally. Resp: Clear to auscultation bilaterally, normal work of breathing without accessory muscle usage.Infrequent mildly productive cough observed. Card: Regular rate and rhythm with no murmurs, rubs or gallops. Extremities warm and well perfused. Vascular: both calves of equal size and nontender to palpation bilaterally. GI: Non-tender to palpation throughout all quadrants, no masses or organomegaly appreciated. : Deferred MSK: No visible deformities, strength and tone without visually appreciable deficit. Neuro: alert and oriented 3, no facial asymmetry, vision and hearing WNL. Heme/Lymph: Deferred Skin: Normal color with no visible lesions (other than noted above). Psych: Mood and affect appropriate. Labs/imaging: CXR: nothing acute is appreciated on AP chest x-ray. WBC 4.1, HB 14.5, sodium 140, potassium 4.3, d-dimer 0.50 MDM Previous chart, nursing note, and vitals reviewed. A: 54-year-old obese male with history of schizophrenia, medication noncompliance, bipolar disorder, and HTN presents for evaluation of cough, sore throat, and watery eyes with mild discomfort of ~1 week duration. 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 Evaluation: Overall presentation most consistent with a viral rhinosinutisis, given the duration of symptoms and overall well compensated appearance, antibiotic treatment is not currently indicated, rapid strep not indicated, oral mucosa without lesions consistent with HSV or candidiasis, low suspicion for peritonsillar cellulitis or abscess given the absence of asymmetric swelling or uvular deviation, RPA is unlikely as the patient can comfortably flex and extend their neck and swallow without difficulty. As phonation is intact and breathing is unlabored doubt epiglottitis. The floor of the mouth is without evidence of Vickey's angina. 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 With respect to pneumonia, the patients chest x-ray is clear, there is no leukocytosis, fever, or further features consistent with pneumonia. With respect to PE, Wells score (see below) 0, as such the patients negative d- dimer is appropriate for PE rule out/risk stratification. ED Course: No clinically significant changes. Disposition: Discharge with return to care as needed. Return to care indications provided. Impression: Rhinosinusitis. (please reference below for remainder of encounter information) Deyanira (Signs & Sx of DVT - 0, PE is #1 or equally likelihood - 0, HR > 100 - 0 , immobilization of >=3 days or surgery in last 28 days - 0, prior DVT or PE - 0 , hemoptysis - 0, malignancy w/ tx in last 6 mo or palliative - 0). - Related Data Allergies Allergy/AdvReac Type Severity Reaction Status Date / Time No Known Allergies Allergy Verified 12/07/19 07:25 Home Meds: Home Meds Metoprolol Tartrate PO DAILY 12/07/19 [History] atorvaSTATin [Lipitor] PO DAILY 12/07/19 [History] metFORMIN [Glucophage XR] PO DAILY 12/07/19 [History] Past Medical History HEENT History: Reports: None Cardiovascular History: Reports: High Cholesterol, Hypertension Respiratory History: Reports: None Gastrointestinal History: Reports: None Genitourinary History: Reports: None Musculoskeletal History: Reports: None Neurological History: Reports: None Psychiatric History: Reports: Bipolar, Hallucinations, Schizophrenia Other Psychiatric History: Off meds for 5 weeks Endocrine/Metabolic History: Reports: Diabetes, Type II Hematologic History: Reports: None Immunologic History: Reports: None Oncologic (Cancer) History: Reports: None Dermatologic History: Reports: None - Infectious Disease History Infectious Disease History: Reports: None - Past Surgical History Head Surgeries/Procedures: Reports: None HEENT Surgical History: Reports: Tonsillectomy Social & Family History - Family History Family Medical History: Noncontributory - Tobacco Use Smoking Status *Q: Never Smoker - Caffeine Use Caffeine Use: Reports: Soda Other Caffeine Use: Occ - Recreational Drug Use Recreational Drug Use: No ED ROS GENERAL - Review of Systems Review Of Systems: See Below ED EXAM, GENERAL - Physical Exam Exam: See Below Course - Vital Signs Last Recorded V/S: Last Vital Signs Temp 36.1 C 12/07/19 07:23 Pulse 69 12/07/19 07:23 Resp 20 12/07/19 07:23 BP 162/106 H 12/07/19 07:23 Pulse Ox 98 12/07/19 07:23 - Orders/Labs/Meds Labs: Laboratory Tests 12/07/19 12/07/19 12/07/19 Range/Units 08:06 08:06 08:06 WBC 4.81 (4.0-11.0) K/uL RBC 4.99 (4.50-5.90) M/uL Hgb 14.5 (13.0-17.0) g/dL Hct 43.9 (38.0-50.0) % MCV 88.0 (80.0-98.0) fL MCH 29.1 (27.0-32.0) pg MCHC 33.0 (31.0-37.0) g/dL RDW Std Deviation 42.5 (28.0-62.0) fl RDW Coeff of Joy 13 (11.0-15.0) % Plt Count 228 (150-400) K/uL MPV 10.50 (7.40-12.00) fL Neut % (Auto) 41.3 L (48.0-80.0) % Lymph % (Auto) 43.7 H (16.0-40.0) % [facility] % (Auto) 7.5 (0.0-15.0) % Eos % (Auto) 6.7 (0.0-7.0) % Baso % (Auto) 0.8 (0.0-1.5) % Neut # (Auto) 2.0 (1.4-5.7) K/uL Lymph # (Auto) 2.1 (0.6-2.4) K/uL [facility] # (Auto) 0.4 (0.0-0.8) K/uL Eos # (Auto) 0.3 (0.0-0.7) K/uL Baso # (Auto) 0.0 (0.0-0.1) K/uL Nucleated RBC % 0.0 /100WBC Nucleated RBCs # 0 K/uL D-Dimer, Quantitative 0.50 (0.0-0.50) mg/L FEU Sodium 140 (136-148) mmol/L Potassium 4.3 (3.5-5.1) mmol/L Chloride 106 (98-107) mmol/L Carbon Dioxide 27.3 (21.0-32.0) mmol/L BUN 11 (7.0-18.0) mg/dL Creatinine 1.1 (0.8-1.3) mg/dL Est Cr Clr Drug Dosing 77.42 mL/min Estimated GFR (MDRD) > 60.0 ml/min Glucose 134 H (74-106) mg/dL Calcium 9.6 (8.5-10.1) mg/dL Total Bilirubin 0.5 (0.2-1.0) mg/dL AST 19 (15-37) IU/L ALT 28 (14-63) IU/L Alkaline Phosphatase 70 (46-116) U/L Total Protein 8.0 (6.4-8.2) g/dL Albumin 3.8 (3.4-5.0) g/dL Globulin 4.2 H (2.6-4.0) g/dL Albumin/Globulin Ratio 0.9 (0.9-1.6) Departure - Departure Time of Disposition: 08:41 Disposition: Home, Self-Care 01 Condition: Good Clinical Impression: Rhinosinusitis - Discharge Information Referrals: PCP,None [Primary Care Provider] - Additional Instructions: You were in seen in the [facility] Emergency Department for evaluation of an upper respiratory tract infection. Please read and follow all of the instructions below. Please follow up with your primary care physician as needed. When calling for follow-up care, please make the office aware that this follow-up is from your recent emergency room visit. If for any reason you are refused follow-up, please contact the [facility] Emergency Department at and asked to speak to the emergency department charge nurse. Your care today was limited to identifying and treating emergent medical problems only. Many people have subtle differences in their test results that require follow up with their outpatient physician(s) to correctly determine if this represents a normal variation or concerning abnormality with respect to your specific health. The care given to you today was limited to identifying and treating emergent medical problems - you need to request a copy of all of your medical records from today's visit and follow up with your outpatient physician(s) to review both today's visit and your overall health. If you have any new symptoms or if you are at all concerned about your health please return immediately to the emergency department. Prescriptions: If you are uninsured or have financial difficulties with filling your prescription(s), you may consider using a free pharmacy discount service such as [employer] (goodrxNubian [employer]) or [employer] (disco volante.MoneyMail). These services allow you to search for a medication on your phone (or computer) and obtain a coupon that usually has a significant discount from the list gonzales at a pharmacy. Your physician as well as [facility] does not have a financial relationship with either of these services. You may also wish to speak with your physician to determine if lower cost prescriptions are possible. Obtaining primary care: 1. [facility] provides pediatrics (children), family medicine (children, adults, and some obstetrical care), and internal medicine (adults). Further specialty care is also available. Same day appointments are available. They may be contacted at [phone] and are open Friday through Friday 8 AM to 5 PM. The [facility] are located at [facility], [address] [place] [address]. 2. [facility] offers family medicine, internal medicine, [facility], and further specialty care. [facility] may be contacted at [phone]. [facility] is located at [address] [facility] [address]. 3. If you have health insurance, please also contact your insurer for a list of accepting providers under your policy, you may contact these providers for further health care. Occupational health: Work related injuries may consider following up with [facility], . Occupational health services are located at [address] [place] [address] and are open Friday through Friday from 7: 30 am to 5:00 pm. Obstetrical and Gynecological Care: [facility], , Friday through Friday 8 AM to 5 PM. [address] [address]. Eyecare: If you have an eye injury you should follow up with your embedded linux engineer or with [facility], at [phone] or [phone] , they are located at [address] [place] [address]. Dental [facility] George Harding DDS. [address] [facility] [place], [place]. Ph. [phone] Alexx Kenrick Harding DDS MS. [address] [facility] [address], [place], [place]. Ph. Harrison Keith Gamble DDS. 10 10/[address] [place] [address]. Ph. [phone] Alfredo Rocha DDS. [address] [facility] [address] [place], [place]. Ph. [phone] Manjeet Farnsworth Gaetano DDS PC. [address] [facility] [address] [place], [place]. Ph. [phone] Kelby Ayala DDS. [address] [facility]. Ph. [phone] [facility]. [address] [place], [place]. Ph. [phone] [facility]. [address] [place] [address], [place], [place]. Ph. [phone] [facility] [address] [place] [address]. Ph. [phone] [facility]. [address] [place] [address] [address] [place], [place]. Ph. [phone] [facility]. [address] [place], [place]. Ph. Cough Home Care Instructions You were seen in the emergency department today for evaluation of your cough. Based upon the evaluation today your cough does not appear to be caused by bacterial pneumonia, rather a virus is the cause of your cough. These types of infections cannot be treated by antibiotics, your body will fight this infection and clear the virus. Most people get better in 7-10 days. It is not uncommon to have a mild nonproductive cough last for up to several weeks following the resolution of your illness. If you continue have a cough beyond 7- 10 days please follow-up with your primary care physician. You may do the following treatments to reduce your symptoms: * Dtub-wjq-xmatmsh cough medications containing dextromethorphan may reduce the frequency and severity of your coughing. Please take as directed on the bottle. Please read all warnings on the bottle. Do not take this medication if you have any allergies to any of the ingredients listed on the bottle. * Ibuprofen may be used to reduce fever, pain, and inflammation. You may take 600 mg (three 200 mg upqy-abn-rmxqobe tablets) every 6-8 hours. Please read the warnings below regarding ibuprofen. Do not take this medication if you are or allergic to ibuprofen, Motrin, Aleve, or naproxen. * Please stay well-hydrated and get adequate rest. * If you are a smoker please stop smoking. * Hcum-pwx-xussawh lozenges or tea with honey may be used for sore throat. Please return to the emergency department if any of the following occur: * Increasing fever. * Worsening cough or a cough that becomes productive of thick sputum. * A cough that temporarily gets better and then over the several days get significantly worse. This may occur if you developed a bacterial pneumonia following your viral infection. This rarely occurs and there is no prevention at this point in your infection. * Chest pain. * Shortness of breath or difficulty breathing. * If you are otherwise concerned about your health. You make take over the counter Acetaminophen (Tylenol) and Ibuprofen (Motrin or Aleve) as directed below for relief of pain. Take 600 mg of ibuprofen (three 200 mg tablets) with a glass of water every 6-8 hours as needed for pain or fever. Do not take if you have ulcers, GI bleeding, are , or are allergic to ibuprofen. Take 1,000 mg of acetaminophen (two 500 mg tablets) with a glass of water every 6-8 hours as needed for pain. Do not take if you are allergic to acetaminophen. If you have liver disease, please reduce your dose to a maximum of 2,000 mg per day. You can take these medications at the same time or on separate schedules. Do not take for more than 10 days. Do not take with alcohol or other acetaminophen containing medications. This medication may cause a mildly upset stomach, if so take it with a small snack. Stop taking it if you have persistent abdominal pain, heartburn, or any stomach pain. Do not take this medication if you have known ulcers. Please read the warnings at the end of this document regarding these medications. IBUPROFEN WARNING: This drug may infrequently cause serious (rarely fatal) bleeding from the stomach or intestines. Also, related drugs rarely have caused blood clots to form, resulting in heart attacks and strokes. This medication might also rarely cause similar problems. Talk to your doctor or pharmacist about the benefits and risks of treatment, as well as other possible medication choices. If you notice any of the following rare but very serious side effects, stop taking ibuprofen and seek immediate medical attention: black stools, persistent stomach/abdominal pain, vomit that looks like coffee grounds, chest pain, weakness on one side of the body, sudden vision changes, slurred speech. IBUPROFEN SIDE EFFECTS: Upset stomach, nausea, vomiting, heartburn, headache, diarrhea, constipation, drowsiness, and dizziness may occur. If any of these effects persist or worsen, notify your doctor or pharmacist promptly. If your doctor has directed you to use this medication, remember that he or she has judged that the benefit to you is greater than the risk of side effects. Many people using this medication do not have serious side effects. Tell your doctor immediately if any of these serious side effects occur: stomach pain, swelling of the hands or feet, sudden or unexplained weight gain, ringing in the ears ( tinnitus). Tell your doctor immediately if any of these unlikely but serious side effects occur: vision changes, rapid or pounding heartbeat, easy bruising or bleeding, difficult/painful swallowing. Tell your doctor immediately if any of these highly unlikely but very serious side effects occur: change in amount of urine, severe headache, very stiff neck, mental/mood changes, persistent sore throat or fever. This drug may rarely cause serious (possibly fatal) liver disease. If you notice any of the following highly unlikely but very serious side effects, stop taking ibuprofen and consult your doctor or pharmacist immediately: yellowing eyes and skin, dark urine, unusual/extreme tiredness. An allergic reaction to this drug is unlikely, but seek immediate medical attention if it occurs. Symptoms of an allergic reaction include: rash, itching/ swelling (especially of the face/tongue/throat), severe dizziness, trouble breathing. This is not a complete list of possible side effects. ACETAMINOPHEN SIDE EFFECTS: This drug usually has no side effects. If you do not have liver problems, the maximum dose of acetaminophen for adults is 4 grams per day (4000 milligrams). Taking more than the maximum daily amount may cause serious (possibly fatal) liver damage. Get medical help right away if you have any of the following symptoms of liver damage: persistent nausea/vomiting, extreme tiredness, stomach/abdominal pain, yellowing eyes/skin, dark urine. If you have liver problems, consult your doctor or pharmacist for a safe dosage of this medication. A very serious allergic reaction to this drug is rare. However , get medical help right away if you notice any symptoms of a serious allergic reaction, including: rash, itching/swelling (especially of the face/tongue/ throat), severe dizziness, trouble breathing. This is not a complete list of possible side effects. If you notice other effects not listed above, contact your doctor or pharmacist. DRUG INTERACTIONS: Your healthcare professionals (e.g., doctor or pharmacist) may already be aware of any possible drug interactions and may be monitoring you for it. Do not start, stop or change the dosage of any medicine before checking with them first. This drug should not be used with the following medications because very serious interactions may occur: cidofovir, ketorolac. If you are currently using any of these medications listed above, tell your doctor or pharmacist before starting ibuprofen. Before using this medication, tell your doctor or pharmacist of all prescription and nonprescription/herbal products you may use, especially of: anti-platelet drugs (e.g., cilostazol, clopidogrel), oral bisphosphonates (e.g., alendronate), other medications for arthritis (e.g., aspirin, methotrexate), "blood thinners" (e.g., enoxaparin, heparin, warfarin), corticosteroids (e.g., prednisone), cyclosporine, desmopressin, high blood pressure drugs (including LAKSHMI inhibitors such as captopril, angiotensin II receptor antagonists such as losartan, and beta- blockers such as metoprolol), lithium, pemetrexed, "water pills" (diuretics such as furosemide, hydrochlorothiazide, triamterene). Check all prescription and nonprescription medicine labels carefully for other pain/fever drugs ( NSAIDs such as aspirin, celecoxib, naproxen). These drugs are similar to ibuprofen, so taking one of these drugs while also taking ibuprofen may increase your risk of side effects. Consult your doctor or pharmacist for more details. However, if your doctor has prescribed low doses of aspirin to prevent heart attack or stroke (usually at dosages of 81-325 milligrams a day), you should continue to take the aspirin. Daily use of ibuprofen may decrease aspirin 's ability to prevent heart attack/stroke. Talk to your doctor about using a different medication (e.g., acetaminophen) to treat pain/fever. If you must take ibuprofen, talk to your doctor about possibly taking immediate-release aspirin (not enteric-coated) while also taking the ibuprofen dose apart from your aspirin dose. Do not increase your daily dose of aspirin or change the way you take aspirin/other medications without your doctor's approval. This document does not contain all possible interactions. Therefore, before using this product, tell your doctor or pharmacist of all the products you use. Keep a list of all your medications with you, and share the list with your doctor and pharmacist. Sepsis Event Note - Evaluation Sepsis Screening Result: No Definite Risk - Focused Exam Vital Signs: Vital Signs Temp Pulse Resp BP Pulse Ox 12/07/19 07:23 36.1 C 69 20 162/106 H 98 Date Exam was Performed: 12/07/19 Time Exam was Performed: 08:41
== END 2019-12-07 09:22 | disposition home or self-care (01) ==
LOC: MW.ED 05:53
DX: J32.9 Chronic sinusitis, unspecified (principal); I10 Essential (primary) hypertension; E11.9 Type 2 diabetes mellitus without complications; Z79.84 Long term (current) use of oral hypoglycemic drugs; Z79.899 Other long term (current) drug therapy
CPT/HCPCS: 36415; 71045; 71045-26; 80053; 85025; 85379; 87804; 99283-25; 99284